=== PATIENT | female | born 1965 | race Caucasian/White ===

== ENCOUNTER 2025-01-11 16:59 | Emergency (ER) | payer OTHER, MEDICAID ==
[~2025-01-11] VITALS: Ht 149.9 cm; Wt 61.0 kg
[2025-01-11 17:14] VITALS: BP 169/123; TEMP 36.6; O2SAT 99
[2025-01-11 17:28] VITALS: PULSE 82; RESP 18; O2SAT 100
[2025-01-11] MEDS ORDERED: T3 PO (19:21)
[2025-01-11] MEDS ORDERED: CYCL10TA21 MT (19:21)
[2025-01-11] MEDS: CYCLOBENZAPRINE 10MG TABLET PO STA (19:41)
== END 2025-01-11 19:51 | disposition home or self-care (01) ==
LOC: ER 16:59
DX: S16.1XXA Strain of muscle, fascia and tendon at neck level, initial encounter (principal); S20.224A Contusion of middle back wall of thorax, initial encounter; I10 Essential (primary) hypertension; V43.52XA Car driver injured in collision with other type car in traffic accident, initial encounter; Y93.89 Activity, other specified; Y92.410 Unspecified street and highway as the place of occurrence of the external cause; Y99.8 Other external cause status
CPT/HCPCS: 99283